=== PATIENT | male | born 1940 | race Caucasian/White ===

== ENCOUNTER 2022-04-12 13:43 | Emergency (ER) | payer MEDICARE, BC | END 2022-04-12 14:42 | disposition home or self-care (01) | LOC: JP.ED 13:43 | DX: S40.861A Insect bite (nonvenomous) of right upper arm, initial encounter (principal); L08.9 Local infection of the skin and subcutaneous tissue, unspecified; Z79.899 Other long term (current) drug therapy; W57.XXXA Bitten or stung by nonvenomous insect and other nonvenomous arthropods, initial encounter | CPT/HCPCS: 99281 ==